=== PATIENT | female | born 1990 | race Caucasian/White ===

== ENCOUNTER 2016-08-21 05:26 | Emergency (ER) | payer BC ==
--- NOTE | 2016-08-21 05:40 | EDM.PDOC ---
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 Patient is a one para zero now at 7 weeks gestation who started some vaginal bleeding around one or 2:00 this morning this became worse she started passing clots possibly some tissue and developing cramps about an hour prior to arrival. The patient has not had any fevers or chills. She denies past medical history other than meningitis when she was a-year-old. The patient brought in some pictures on her phone, some clots 2-3 times the size of a quarter one of which may have had some tissue in it. Patient was seen by an video game programmer last week had an ultrasound done that showed an intrauterine . She is taking vitamins, no other medications. Allergies: None. Social history the patient smokes and drinks rarely denies illicit drug use. - Related Data Allergies/ADRs: Allergies Allergy/AdvReac Type Severity Reaction Status Date / Time No Known Allergies Allergy Verified 08/21/16 05:36 Home Meds: Home Meds Vits #90/Iron Fum/FA [ Formula] 1 tab PO DAILY 08/21/16 [ History] ED ROS GENERAL - Review of Systems Review Of Systems: See Below Constitutional: Reports: no symptoms Respiratory: Reports: No Symptoms Cardiovascular: Reports: No symptoms GI/Abdominal: Reports: No symptoms : Denies: discharge, dysuria, flank pain, frequency ED EXAM, GI/ABD - Physical Exam Exam: See Below Exam Limited By: No limitations General Appearance: alert, no apparent distress Head: atraumatic, normocephalic Neck: normal inspection, supple, non-tender, full range of motion. No: lymphadenopathy (L), lymphadenopathy (R), thyromegaly Respiratory/Chest: no respiratory distress, lungs clear, normal breath sounds Cardiovascular: regular rate, rhythm, no edema, no murmur GI/Abdominal: normal bowel sounds, soft, other (She has some suprapubic discomfort with palpation no rebound or guarding noted.) (Female) Exam: Normal external exam, Other (Patient had small clots coming from the cervical os blood no obvious tissue). No: Adnexal tenderness, Cervix motion tenderness Back Exam: normal inspection. No: CVA tenderness (L), CVA tenderness (R) Course - Vital Signs Last Recorded V/S: Last Vital Signs Temp 36.2 C 08/21/16 05:33 Pulse 81 08/21/16 05:33 Resp 18 08/21/16 05:33 BP 139/80 08/21/16 05:33 Pulse Ox 99 08/21/16 05:33 - Orders/Labs/Meds Orders: Active Orders 24 hr Category Date Time Status PATIENT RETYPE [BBK] Stat Lab 08/21/16 06:10 Results TYPE AND SCREEN [BBK] Stat Lab 08/21/16 06:10 Results Labs: Laboratory Tests 08/21/16 08/21/16 08/21/16 Range/Units 06:10 06:10 06:10 WBC 8.33 (3.98-10.04) K/mm3 RBC 4.46 (3.98-5.22) M/mm3 Hgb 13.8 (11.2-15.7) gm/L Hct 41.2 (34.1-44.9) % MCV 92.4 (79.4-94.8) fl MCH 30.9 (25.6-32.2) pg MCHC 33.5 (32.2-35.5) g/dl RDW Std Deviation 41.9 (36.4-46.3) fL Plt Count 252 (182-369) K/mm3 MPV 10.2 (9.4-12.3) fl Neutrophils % (Manual) 67 H (40-60) % Band Neutrophils % 0 (0-10) % Lymphocytes % (Manual) 30 (20-40) % Atypical Lymphs % 0 % Monocytes % (Manual) 0 L (2-10) % Eosinophils % (Manual) 3 (0.7-5.8) % Basophils % (Manual) 0 L (0.1-1.2) Platelet Estimate Adequate RBC Morph Comment Normal HCG, Quant 5213.0 mIU/mL Urine Color (Yellow) Urine Appearance (Clear) Urine pH (5.0-8.0) Ur Specific [place] (1.005-1.030) Urine Protein (Negative) Urine Glucose (UA) (Negative) Urine Ketones (Negative) Urine Occult Blood (Negative) Urine Nitrite (Negative) Urine Bilirubin (Negative) Urine Urobilinogen (0.2-1.0) Ur Leukocyte Esterase (Negative) Urine RBC (0-5) /hpf Urine WBC (0-5) /hpf Ur Squamous Epith Cells (0-5) /hpf Urine Bacteria (FEW) /hpf Urine Mucus (FEW) /hpf Blood Type A POSITIVE Gel Antibody Screen Negative 08/21/16 Range/Units 06:25 WBC (3.98-10.04) K/mm3 RBC (3.98-5.22) M/mm3 Hgb (11.2-15.7) gm/L Hct (34.1-44.9) % MCV (79.4-94.8) fl MCH (25.6-32.2) pg MCHC (32.2-35.5) g/dl RDW Std Deviation (36.4-46.3) fL Plt Count (182-369) K/mm3 MPV (9.4-12.3) fl Neutrophils % (Manual) (40-60) % Band Neutrophils % (0-10) % Lymphocytes % (Manual) (20-40) % Atypical Lymphs % % Monocytes % (Manual) (2-10) % Eosinophils % (Manual) (0.7-5.8) % Basophils % (Manual) (0.1-1.2) Platelet Estimate RBC Morph Comment HCG, Quant mIU/mL Urine Color Yellow (Yellow) Urine Appearance Clear (Clear) Urine pH 6.5 (5.0-8.0) Ur Specific [place] 1.015 (1.005-1.030) Urine Protein Negative (Negative) Urine Glucose (UA) Negative (Negative) Urine Ketones Negative (Negative) Urine Occult Blood 2+ H (Negative) Urine Nitrite Negative (Negative) Urine Bilirubin Negative (Negative) Urine Urobilinogen 0.2 (0.2-1.0) Ur Leukocyte Esterase Negative (Negative) Urine RBC 0-5 (0-5) /hpf Urine WBC 0-5 (0-5) /hpf Ur Squamous Epith Cells 0-5 (0-5) /hpf Urine Bacteria Not seen (FEW) /hpf Urine Mucus Not seen (FEW) /hpf Blood Type Gel Antibody Screen - Re-Assessments/Exams Free Text/Narrative Re-Assessment/Exam: 08/21/16 07:33 Labs stable awaiting quantitative hCG at this point is change of shift further care and disposition per Dr. Crenshaw. Departure - Departure Disposition: Home, Self-Care 01 Clinical Impression: Incomplete Instructions: Incomplete Miscarriage Referrals: Marion Ly MD [Primary Care Provider] - Forms: ED Department Discharge Additional Instructions: Evaluation in the emergency room today in regards to heavy vaginal bleeding in the first semester . By THE is failing which we call in and complete miscarriage. HCG level came back at 5213. Blood type is A+. Therefore you are to anticipate heavy vaginal flow for the rest of today and then it should start to ease up tomorrow on the next day but it. Heavier than normal. Need to return to medical care if you start to grow heavy enough to soak a pad completely for 2 consecutive hours. It is okay now to take Motrin or Aleve to alleviate abdominal cramping pain. Followup with Dr. Chan is required early next week probably Wednesday. Please will make an appointment with her today. I was able to speak with her this morning and she will follow you along early next week and then a later date to make sure that the hormonal is returned to zero. If any other problems occur either return to the emergency room or call Dr. Ly. <Lv Crenshaw - Last Filed: 08/21/16 07:52> Departure - Departure Time of Disposition: 07:43 Condition: fair
[2016-08-21 08:20] VITALS: BP 105/61
== END 2016-08-21 08:20 | disposition home or self-care (01) ==
LOC: JD.ED 05:26
DX: O03.4 Incomplete spontaneous abortion without complication (principal); Z79.899 Other long term (current) drug therapy
CPT/HCPCS: 36415; 81001; 84702; 85025; 86850; 86900; 86901; 99284; P9612; 51701; 99283

== ENCOUNTER 2017-11-16 07:36 | Inpatient (IN) | payer BC ==
[2017-11-16] MEDS ORDERED: Nalbuphine 20 MG/ML 1 ML Syringe IVPUSH PRN (08:10)
[2017-11-16] MEDS ORDERED: Sodium Chloride 0.9% 10 ML Syringe FLUSH PRN (08:10)
[2017-11-16] MEDS ORDERED: Lactated Ringers 1,000 ML IV SCH (08:15)
[2017-11-16] MEDS ORDERED: Oxytocin/Lactated Ringers 10 UNIT/1,000 ML BAG IV SCH ×2 (08:15)
[2017-11-16] MEDS ORDERED: Ondansetron 4 MG/2 ML SDV IVPUSH PRN (08:38)
[2017-11-16] MEDS ORDERED: diphenhydrAMINE 50 MG/ML SDV IVPUSH PRN (08:38)
[2017-11-16] MEDS ORDERED: fentaNYL 100 MCG/2 ML SDV EPIDUR PRN (08:38)
[2017-11-16] MEDS ORDERED: ePHEDrine 50 MG/ML SDV IVPUSH PRN (08:38)
[2017-11-16] MEDS ORDERED: Bupivacaine/fentaNYL/NS 100 ML Bag EPIDUR SCH (08:45)
--- NOTE | 2017-11-16 10:12 | PCM.LDHP ---
L&D History of Present Illness - General Date of Service: 11/16/17 Admit Problem/Dx: Patient Status Order with Admit Dx/Problem 11/16/17 08:10 Patient Status [ADT] Routine Admission Diagnosis/Problem Admission Diagnosis/Problem 11/16/17 10:03 41-2/7 week intrauterine , active labor, advanced cervical dilation of 8 cm. Source of Information: Patient History Limitations: Reports: No Limitations - History of Present Illness Introduction:: Hiral is 27-year-old 3 para 0020 white female who comes in in labor and delivery with advanced cervical dilation, contractions every 3 minutes which are intense and regular. Her BISI is 11/07/2017. Artificial rupture membranes was performed with resultant clear amniotic fluid. She then advances to complete cervical dilation relatively quickly. She is having reassuring heart tones. history 3 para 0020. Patient's past obstetric history includes miscarriage 2 in July 2016 in November 2016. Her BISI is determined by last menstrual period of 01/31/2017 which is certain and definite. Menarche age 11 cycles every 28 days duration 5-7 days. No control been using a time conception. Her course has been relatively unremarkable. Her first visit was on 04/26/2017 at 12-1/7 weeks gestational age. She is seen on a regular basis. Her weight increased from approximate 170 pounds up to 186 pounds for a 16 pound weight gain. Her vital signs were stable through the course and her fundal height growth was appropriate. She had an abnormal three-hour week glucose tolerance test. She was well controlled with diet however. She declined genetic testing. Her [place] depression screen score was 4 and scale 30 on June 07, 2017. Her group B strep screen was negative. Patient last breast-feed. Laboratory testing. She shows blood to be a positive with a negative antibody screen. First hemoglobin was 13.6 g/dL and platelets are 202,000. She is rubella immune. RPR is nonreactive. Patient Gardnerella on culture with first visit and was treated. Her Chlamydia and gonorrhea assays were both negative. Hepatitis B surface antigen and HIV assays were both negative. Second trimester labs showed hemoglobin 11.2 g or deciliter and platelets are 243,000. She had a one-hour GTT of 199. Her 3 glucose tolerance test was 83 at fasting, 192 at one-hour, 190 and 2 hour and 90 at 3 hour. Her group B strep screen was negative. Patient was started on a diet and had consultation with hospice educator. She did blood sugars which were consistently within normal limits for the most of the remainder of the . Allergies none Medications: 1. vitamins daily Past medical history: Miscarriages 2 Past surgical history: Unremarkable Family history mother and father are alive and well. Father does have hypertension, elevated cholesterol and diabetes type 2. Niece with cystic fibrosis history, . Paternal grandmother secondary diabetes and Alzheimer's. Maternal grandfather secondary uncertain cause of . Paternal grandmother and grandfather both uncertain cause of . No anesthesia, bleeding, blood clotting problems noted in the family. Social history patient is , lives in [facility]. She was does not use any significant loss of alcohol, drugs but has smoked during the course of . Her is Lv. Review of systems: In general patient is having contractions which are somewhat intense. Skin: Negative Cardiovascular: No chest pain or exercise intolerance Respiratory: No shortness of breath or infectious symptoms Breasts: Increase in size secondary to otherwise unremarkable. Patient plans to breast-feed. GI: Negative : Increased fundal height consistent with dates. Musculoskeletal: Occasional edema in lower start was otherwise unremarkable Neurological: Unremarkable Physical exam: In general patient is well-developed, well-nourished, pleasant phenyl stated age in mild distress secondary to contractions. On last evaluation clinic her blood pressure 122/72 and 142/82. Weight was 186 and increased from 170 from at first visit. heart rate is 140 and fundal height was 39. Her pregravid weight was 169.8 height is 5 feet 8 and pregravid body mass index is 25.7. Skin is warm dry without lesions. HEENT, neck and back within normal limits Lungs are clear with good breath sounds in all lung felipe. Cardiovascular exam shows regular rate and rhythm without murmurs. Breast exam is deferred having been done at first visit and found to be normal is not repeated at this time. Abdomen shows Fundal height is at 39 cm. Using vertex presentation by Jean Paul. Cervix on last evaluation clinic was 4 centers, 90% effaced, -2 station, very soft, mid position. Extremities show no significant edema. Neurological exam within normal. - Related Data Allergies/Adverse Reactions: Allergies Allergy/AdvReac Type Severity Reaction Status Date / Time No Known Allergies Allergy Verified 08/21/16 05:36 Home Medications: Home Meds Vit 90/Iron Fum/Folic [ Formula] 1 tab PO DAILY 08/21/16 [ History] Past Medical History - Past Health History Medical/Surgical History: Denies Medical/Surgical History Social & Family History - Family History Family Medical History: Noncontributory H&P Review of Systems - Review of Systems: Review Of Systems: See Below L&D Exam - Exam Exam: See Below - Vital Signs Weight: 84.368 kg - Patient Data Lab Results Last 24 hrs: Laboratory Results - last 24 hr 11/16/17 Range/Units 08:25 WBC 18.84 H (3.98-10.04) K/mm3 RBC 3.99 (3.98-5.22) M/mm3 Hgb 12.5 (11.2-15.7) gm/L Hct 36.9 (34.1-44.9) % MCV 92.5 (79.4-94.8) fl MCH 31.3 (25.6-32.2) pg MCHC 33.9 (32.2-35.5) g/dl RDW Std Deviation 47.5 H (36.4-46.3) fL Plt Count 201 (182-369) K/mm3 MPV 11.3 (9.4-12.3) fl Neut % (Auto) 80.9 H (34.0-71.1) % Lymph % (Auto) 14.0 L (19.3-51.7) % Gibson % (Auto) 4.4 L (4.7-12.5) % Eos % (Auto) 0.2 L (0.7-5.8) Baso % (Auto) 0.2 (0.1-1.2) % Neut # (Auto) 15.26 H (1.56-6.13) K/mm3 Lymph # (Auto) 2.64 (1.18-3.74) K/mm3 Gibson # (Auto) 0.82 H (0.24-0.36) K/mm3 Eos # (Auto) 0.04 (0.04-0.36) K/mm3 Baso # (Auto) 0.03 (0.01-0.08) K/mm3 Result Diagrams: 11/16/17 08:25 Problem List Initiated/Reviewed/Updated: Yes Orders Last 24hrs: Active Orders 24 hr Category Date Time Status Patient Status [ADT] Routine ADT 11/16/17 08:10 Active Activity as Tolerated [RC] PFP Care 11/16/17 08:10 Active Communication Order [RC] ASDIRECTED Care 11/16/17 08:10 Active Heart Tones [RC] ASDIRECTED Care 11/16/17 08:10 Active Notify Provider [RC] ASDIRECTED Care 11/16/17 08:38 Active Notify Provider [RC] PFP Care 11/16/17 08:10 Active Notify Provider [RC] PRN Care 11/16/17 08:10 Active Peripheral IV Care [RC] . DIRECTED Care 11/16/17 08:10 Active Pump Management, Intrathecal [RC] ASDIRECTED Care 11/16/17 08:10 Active Urinary Catheter Assessment [RC] ASDIRECTED Care 11/16/17 08:10 Active Vital Signs [RC] PER UNIT ROUTINE Care 11/16/17 08:10 Active Regular Diet [DIET] Diet 11/16/17 Breakfast Active RAPID PLASMA REAGIN,RPR [CHEM] Routine Lab 11/16/17 08:25 Received Bupivacaine/fentaNYL/NS [fentaNYL/Bupivacaine/NS 2 MCG- Med 11/16/17 08:45 Active 0.125% 100 ML] 100 ml EPIDUR ASDIRECTED Lactated Ringers [Ringers, Lactated] 1,000 ml Med 11/16/17 08:15 Active IV ASDIRECTED Nalbuphine [Nubain] Med 11/16/17 08:10 Active 10 mg IVPUSH Q2H PRN Ondansetron [Zofran] Med 11/16/17 08:38 Active 4 mg IVPUSH ONETIME PRN Oxytocin/Lactated Ringers [Pitocin in LR 10 Units/1,000 Med 11/16/17 08:15 Active ML] 10 unit in 1,000 ml IV .CONTINUOUS Oxytocin/Lactated Ringers [Pitocin in LR 10 Units/1,000 Med 11/16/17 08:15 Active ML] 10 unit in 1,000 ml IV TITRATE Sodium Chloride 0.9% [Saline Flush] Med 11/16/17 08:10 Active 10 ml FLUSH ASDIRECTED PRN diphenhydrAMINE [Benadryl] Med 11/16/17 08:38 Active 25 mg IVPUSH Q6H PRN ePHEDrine [ePHEDrine Sulfate] Med 11/16/17 08:38 Active 5 mg IVPUSH ASDIRECTED PRN fentaNYL [Sublimaze] Med 11/16/17 08:38 Active 100 mcg EPIDUR ONETIME PRN Electronic Heart Tones Ext w TOCO [WOMSER] Oth 11/16/17 08:10 Ordered Routine Electronic Heart Tones Internal [WOMSER] Per Unit Ot 11/16/17 08:10 Ordered Routine Peripheral IV Insertion Adult [OM.PC] Routine Ot 11/16/17 08:10 Ordered Resuscitation Status Routine Resus Stat 11/16/17 08:10 Ordered Medication Orders Diphenhydramine HCl (Benadryl) 25 mg IVPUSH Q6H PRN PRN Reason: Pruritis Ephedrine Sulfate (Ephedrine Sulfate) 5 mg IVPUSH ASDIRECTED PRN PRN Reason: Hypotension Fentanyl (Sublimaze) 100 mcg EPIDUR ONETIME PRN PRN Reason: Pain Fentanyl/Bupivacaine HCl (Fentanyl/Bupivacaine/Ns 2 Mcg-0.125% 100 Ml) 100 ml EPIDUR ASDIRECTED AMY Lactated Ringer's (Ringers, Lactated) 1,000 mls @ 100 mls/hr IV ASDIRECTED AMY Last Admin: 11/16/17 08:30 Dose: 999 mls/hr Oxytocin/Lactated Ringer's (Pitocin In Lr 10 Units/1,000 Ml) 10 unit in 1,000 mls @ 12 mls/hr IV TITRATE AMY; Protocol Oxytocin/Lactated Ringer's (Pitocin In Lr 10 Units/1,000 Ml) 10 unit in 1,000 mls @ 500 mls/hr IV .CONTINUOUS AMY Nalbuphine HCl (Nubain) 10 mg IVPUSH Q2H PRN PRN Reason: Pain (moderate 4-6) Ondansetron HCl (Zofran) 4 mg IVPUSH ONETIME PRN PRN Reason: Nausea/Vomiting Sodium Chloride (Saline Flush) 10 ml FLUSH ASDIRECTED PRN PRN Reason: Keep Vein Open Assessment/Plan Comment:: 1. 41-2/7 week intrauterine printed, active labor with advanced cervical dilation 2. She declines epidural analgesia at this time 3. Patient plans to breast-feed 4. Group B strep screen negative 5. Rubella titer shows immunity Plan: 1. Anticipate normal spontaneous vaginal delivery 2. Natural childbirth 3. Support breast-feeding decision 4. RPR
[2017-11-16] MEDS ORDERED: Lidocaine 1% 50 ML MDV ONE (10:47)
--- NOTE | 2017-11-16 11:19 | PCM.SN ---
- Free Text/Narrative Note: Delivery note: Cherelle is a 27-year-old 3 now para 10-1 white female who was admitted in active labor this morning. She is 41-2/7 weeks gestational age upon admission. She progressed to complete cervical dilation and pushed for approximately 45 minutes. She delivered a viable, diamond, male with Apgars of 8 and 9, weight of 3360 g (7 lbs. 7 oz. in a right occiput anterior position at 1055 hrs. on 11/16/2017. He was placed on mom's abdomen. Cord was eventually clamped and cut after stopped pulsating and was was noted to have 3 vessels. Pitocin was started after delivery IV to facilitate increase in tone and decreased likelihood of bleeding. Cord blood was obtained. The placenta delivered in a Jones fashion at 1101 hrs. A small second-degree perineal laceration was repaired with 3-0 Monocryl suture in a routine fashion. Lidocaine 1%10 mL was used to provide anesthesia. Estimated blood loss was 100 mL. Patient plans to breast-feed. Condition: Good.
[2017-11-16] MEDS ORDERED: Acetaminophen 325 MG Tab PO PRN (12:05)
[2017-11-16] MEDS ORDERED: Docusate Sodium 100 MG Cap PO PRN (12:05)
[2017-11-16] MEDS ORDERED: Ibuprofen 600 MG Tab PO PRN (12:05)
[2017-11-16] MEDS ORDERED: Lanolin 100% Cream 7 GM Tube TOP PRN (12:05)
[2017-11-16] MEDS ORDERED: Witch Hazel Medicated Pads 100/Jar TOP PRN (12:05)
[2017-11-16] MEDS ORDERED: Benzocaine/Menthol 20%-0.5% Spray 56 GM Canister TOP PRN (12:05)
[2017-11-16] MEDS: Prenatal Multivitamin with Calcium/Folic Acid/Iron Tab PO SCH (15:58)
[2017-11-16] MEDS ORDERED: Pneumococcal Polyvalent-23 Vaccine 0.5 ML SDV IM ONE (16:22)
[2017-11-16] MEDS ORDERED: Lidocaine 1% 10 ML MDV INJECT ONE (16:23)
--- NOTE | 2017-11-17 06:59 | PCM.SN ---
- Free Text/Narrative Note: note: Patient is doing well in the period. Minimal lochia, voiding well, ambulated without problems. Nursing without concerns. Patient is afebrile, vital signs are stable Abdomen is flat, soft, uterus is below the umbilicus and is firm and nontender. Legs are nontender. Hemoglobin is 11.1, platelets are 195,000 Assessment: recovery going well. Plan: Routine care. Patient be discharged home within the next 24- 48 hours.
[2017-11-17] MEDS: Prenatal Multivitamin with Calcium/Folic Acid/Iron Tab PO SCH (10:06)
--- NOTE | 2017-11-17 18:44 | PCM.DCSUM1 ---
Discharge Summary - Hospital Course Free Text/Narrative:: Cherelle is a 27-year-old 3 now para 10-1 white female who was admitted in active labor this morning. She is 41-2/7 weeks gestational age upon admission. She progressed to complete cervical dilation and pushed for approximately 45 minutes. She delivered a viable, diamond, male infant with Apgars of 8 and 9, weight of 3360 g (7 lbs. 7 oz. in a right occiput anterior position at 1055 hrs. on 11/16/2017. He was placed on mom's abdomen. Cord was eventually clamped and cut after stopped pulsating and was was noted to have 3 vessels. Pitocin was started after delivery IV to facilitate increase in tone and decreased likelihood of bleeding. Cord blood was obtained. The placenta delivered in a Jones fashion at 1101 hrs. A small second-degree perineal laceration was repaired with 3-0 Monocryl suture in a routine fashion. Lidocaine 1%10 mL was used to provide anesthesia. Estimated blood loss was 100 mL. Patient plans to breast-feed. patient is doing well. She is nursing without too many problems. She is ambulating well. Vital signs are stable. Patient is desiring discharge home. Condition: Good. Diagnosis: Stroke: No - Discharge Data Discharge Date: 11/17/17 Discharge Disposition: Home, Self-Care 01 Condition: Good - Patient Instructions Diet: Regular Diet as Tolerated Activity: As Tolerated (No intercourse tampons until bleeding resolves) Driving: May Drive Today Showering/Bathing: May Shower (May take a bath) Notify Provider of: Fever, Increased Pain, Swelling and Redness, Nausea and/or Vomiting - Discharge Plan Home Medications: Home Meds Vit 90/Iron Fum/Folic [ Formula] 1 tab PO DAILY 08/21/16 [ History] Acetaminophen [Tylenol] 650 mg PO Q4H PRN tablet 11/17/17 [Rx] Ibuprofen [Motrin] 600 mg PO Q4H PRN tablet 11/17/17 [Rx] Patient Handouts: Steps to Quit Smoking Referrals: Shailesh Rudd MD [Primary Care Provider] - (Return to clinicDr. Rudd2 weeks) - Discharge Summary/Plan Comment DC Time >30 min.: No Discharge Summary/Plan Comment: Discharge instructions: 1. Discharge home 2. Diet, activity and follow-up discussed with patient. Recommend nursing diet with increased calories and calcium. 3. Precautions given concern increased pain, bleeding, temperature, signs/ symptoms of DVT/PE. 4. Medications per home medication was printed, discussed with and given to the patient. 5. Return to clinic-Dr. Rudd[facility] in 2 weeks. Diagnosis: Term -delivered Condition: Good - Patient Data Vitals - Most Recent: Last Vital Signs Temp 36.4 C 11/17/17 14:39 Pulse 83 11/17/17 14:39 Resp 16 11/17/17 14:39 BP 116/70 11/17/17 14:39 Pulse Ox 94 L 11/17/17 14:39 Weight - Most Recent: 84.368 kg Lab Results - Last 24 hrs: Laboratory Results - last 24 hr 11/17/17 Range/Units 06:00 WBC 15.13 H (3.98-10.04) K/mm3 RBC 3.57 L (3.98-5.22) M/mm3 Hgb 11.1 L (11.2-15.7) gm/L Hct 33.5 L (34.1-44.9) % MCV 93.8 (79.4-94.8) fl MCH 31.1 (25.6-32.2) pg MCHC 33.1 (32.2-35.5) g/dl RDW Std Deviation 48.0 H (36.4-46.3) fL Plt Count 195 (182-369) K/mm3 MPV 11.1 (9.4-12.3) fl Med Orders - Current: Current Medications Acetaminophen (Tylenol) 650 mg PO Q4H PRN PRN Reason: mild pain or fever Benzocaine/Menthol (Dermoplast Pain Relief [place]) 0 gm TOP ASDIRECTED PRN PRN Reason: Perineal Comfort Measure Last Admin: 11/16/17 14:22 Dose: 1 can Docusate Sodium (Colace) 100 mg PO BID PRN PRN Reason: Constipation Emollient Ointment (Lansinoh Hpa) 0 gm TOP ASDIRECTED PRN PRN Reason: Sore Nipples Ibuprofen (Motrin) 600 mg PO Q4H PRN PRN Reason: Mild pain or fever Prenat Multivit/[place]/Iron/Folic Ac ( Plus Iron) 1 each PO DAILY [facility] Last Admin: 11/17/17 10:06 Dose: 1 each Witch Cris (Tucks) 1 pad TOP ASDIRECTED PRN PRN Reason: Hemorrhoid pain Last Admin: 11/16/17 14:22 Dose: 1 container Discontinued Medications Diphenhydramine HCl (Benadryl) 25 mg IVPUSH Q6H PRN PRN Reason: Pruritis Ephedrine Sulfate (Ephedrine Sulfate) 5 mg IVPUSH ASDIRECTED PRN PRN Reason: Hypotension Fentanyl (Sublimaze) 100 mcg EPIDUR ONETIME PRN PRN Reason: Pain Fentanyl/Bupivacaine HCl (Fentanyl/Bupivacaine/Ns 2 Mcg-0.125% 100 Ml) 100 ml EPIDUR ASDIRECTED AMY Lactated Ringer's (Ringers, Lactated) 1,000 mls @ 100 mls/hr IV ASDIRECTED AMY Last Admin: 11/16/17 08:30 Dose: 999 mls/hr Oxytocin/Lactated Ringer's (Pitocin In Lr 10 Units/1,000 Ml) 10 unit in 1,000 mls @ 12 mls/hr IV TITRATE AMY; Protocol Oxytocin/Lactated Ringer's (Pitocin In Lr 10 Units/1,000 Ml) 10 unit in 1,000 mls @ 500 mls/hr IV .CONTINUOUS AMY Last Admin: 11/16/17 10:55 Dose: 500 mls/hr Lidocaine HCl (Xylocaine 1%) Confirm Administered Dose 50 ml .ROUTE .STK-MED ONE Stop: 11/16/17 10:48 Last Admin: 11/16/17 11:10 Dose: 50 ml Lidocaine HCl (Xylocaine 1%) 10 ml INJECT ONETIME ONE Stop: 11/16/17 16:24 Last Admin: 11/16/17 16:44 Dose: Not Given Nalbuphine HCl (Nubain) 10 mg IVPUSH Q2H PRN PRN Reason: Pain (moderate 4-6) Ondansetron HCl (Zofran) 4 mg IVPUSH ONETIME PRN PRN Reason: Nausea/Vomiting Pneumococcal Polyvalent Vaccine (Pneumovax 23) 0.5 ml IM .ONCE ONE Stop: 11/16/17 16:23 Last Admin: 11/17/17 10:07 Dose: 0.5 ml Sodium Chloride (Saline Flush) 10 ml FLUSH ASDIRECTED PRN PRN Reason: Keep Vein Open
[2017-11-17 20:27] VITALS: BP 118/68
== END 2017-11-17 22:30 | disposition home or self-care (01) | DRG 560 ==
LOC: JD.OBCHECK 07:36 → JD.OB 07:40 → JD.OBCHECK 08:10 → OBSVTOIN 10:55 → JD.MS 10:56 → JD.OB 15:42
PROVIDERS: ADMIT Obstetrics & Gynecology; ATTEND Obstetrics & Gynecology
PROC: 10E0XZZ Delivery of Products of Conception, External Approach (ICD-10-PCS; principal; 2017-11-16)
PROC: 0KQM0ZZ Repair Perineum Muscle, Open Approach (ICD-10-PCS; 2017-11-16)
PROC: 10907ZC Drainage of Amniotic Fluid, Therapeutic from Products of Conception, Via Natural or Artificial Opening (ICD-10-PCS; 2017-11-16)
DX: O70.1 Second degree perineal laceration during delivery (principal); Z3A.41 41 weeks gestation of pregnancy; Z37.0 Single live birth
CPT/HCPCS: 36415; 59025; 59300; 59409; 85025; 85027; 86592; 90732; A9270-GY; G0009; J2590; J7120

== ENCOUNTER 2019-09-21 10:41 | Inpatient (IN) | payer BC ==
[2019-09-21] MEDS ORDERED: Ondansetron 4 MG/2 ML SDV IVPUSH PRN (11:16)
[2019-09-21] MEDS ORDERED: Nalbuphine 10 MG/ML Syringe IVPUSH PRN (11:16)
[2019-09-21] MEDS ORDERED: Sodium Chloride 0.9% 10 ML Syringe FLUSH PRN (11:16)
[2019-09-21] MEDS: Lactated Ringers 1,000 ML IV SCH ×2 (11:27→17:30)
[2019-09-21] MEDS ORDERED: Oxytocin/Lactated Ringers 10 UNIT/1,000 ML BAG IV SCH ×2 (11:30)
--- NOTE | 2019-09-21 12:27 | PCM.LDHP ---
L&D History of Present Illness - General Date of Service: 09/21/19 Admit Problem/Dx: Patient Status Order with Admit Dx/Problem 09/21/19 11:16 Patient Status [ADT] Routine Admission Diagnosis/Problem Admission Diagnosis/Problem 09/21/19 12:11 Cherelle is a 29-year-old 4 para 102 1 white female who presently is 5/7 weeks gestational age with an BISI of 09/23/2019 who is and delivery in early labor with advanced cervical dilation of 7 cm, 90% effacement, very soft, mid position and +1 station. Heart tones are reassuring. Source of Information: Patient History Limitations: Reports: No Limitations - History of Present Illness Introduction:: Cherelle is a 29-year-old 4 para 102 1 white female who presently is 5/7 weeks gestational age with an BISI of 09/23/2019 who is and delivery in early labor with advanced cervical dilation of 7 cm, 90% effacement, very soft, mid position and +1 station. Heart tones are reassuring.She was seen in clinic this a.m. and found to have advanced from 5 cm dilation 2 days ago to 7 cm dilation today. She is having a minimal contractions that are mild. Because she is a multiparous patient who lives 30 minutes away from the hospital the decision was made to send her to labor and delivery and proceed with AROM augmentation of labor. She is comfortable with this and is very glad concerning this decision. 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 Patient had menarche at age 11. Cycles every 28 days. Not using any control time conception. Her last menstrual period was 12/17/2018. This LMP was relatively certain. She was however nursing up to 3 weeks before getting . Her past obstetric history includes the followin. Miscarriage, first trimester7 weeks gestation on 08/20/2016. 2. Miscarriage in the first trimester5 weeks' gestation on 11/21/2016 3. Male infant born 11/16/2017 at 41-2/7 weeks gestational age after 7 hours of labor7 lbs. 7 oz. born via with no analgesia. Delivered in [facility]. Child's name is Edin Wei. course: Patient was seen for her first visit on 03/06/2019 at 11-2/7 weeks gestational age. BISI is dated by a certain last menstrual 2018. She had regular visits during the course of Precis. She made good fundal height growth. Her weight gain was from 154.8 pounds to 180 pounds for approximately 25 pound increase. Fundal height growth has been appropriate. She is group B strep negative. She had an abnormal one-hour GTT of 137. Three- hour GTT was normal with fasting blood sugar 83, 1 hour glucose 135, 2 hour glucose 116 and three-hour glucose 105. Her EPDS score on 05/22/2019 was 6/30. She had an abnormal Pap smear which showed low-grade squamous intraepithelial lesion with cold test HPV negative. She is advised to have a repeat Pap smear and colposcopy at 6 weeks . Colposcopy 04/19/2019 showed no significant abnormalities. Patient smokes approximately half pack per day which buried up to 1 pack per day late in the . Has a history of gestational diabetes with previous . Patient had her flu shot on 03/06/2019. Sure she had her T dap on 07/11/2019. She is rubella immune. She had a pneumococcal immunization on 11/17/2017. Laboratory testing and shows blood to be 8-positive with negative antibody screen. Her first hemoglobin was 12.6 g/dL and platelets are 281,000. She is rubella immune and RPR was nonreactive. Hep test B surface antigen was negative and HIV assay was also negative. Gonorrhea and chlamydia tests were negative. TSH on 06/27/2019 was normal at 0.552 mU/mL. Second trimester hemoglobin was 11.3 g/dL. Patient is advised to get on ferrous sulfate at that time. Platelets are 244,000. Her RPR on 06/27/2019 was nonreactive. Strep screen was negativ Allergies: None Medications: vitamins Past medical history: 1. 11/16/2017 2. Spontaneous miscarriages 2first [id number] Past surgical history: Unremarkable. Family history: Mother alive and well. Father alive, well but with hypertension and elevated cholesterol and type 2 diabetes. Patient has 3 siblings were alive and well. A niece had cystic fibrosis. Baby at 15 months of age. Maternal grandmother secondary to diabetes and Alzheimer's. Maternal grandfather secondary to uncertain cause. Paternal grandmother uncertain cause. Paternal grandfather uncertain cause. No anesthesia, bleeding, blood clotting problems noted in the family. Social history: Patient is . is Garth. She is a [id number] mom. She lives in [place], [place]. She smokes 1/2-1 pack cigarettes per day. She does not use any other significant drugs or alcohol. Review of systems: In general patient has no complaints. As reports some contractions but they're irregular and mild. Skin: Negative Lungs: No infectious symptoms or shortness of breath Cardiovascular: No chest pain or exercise intolerance Breasts: Changes associated with . GI: Negative : Body habitus changes associated . Baby has been active. Musculoskeletal: Negative Neurological: Negative In general the patient is well-developed, well-nourished, pleasant female of stated age in no acute distress. On evaluation in clinic patient's blood pressure was 144/68 on repeat 142/80. Her weight was 180 pounds with pre weight at 154.8 pounds. Prepregnancy body mass index is 22.8. Height is 5 feet 8 inches. heart rate was 136. Skin is warm dry without lesions. HEENT, neck and back within normal limits. Lungs are clear with good breath sounds in all lung felipe. Cardiovascular exam shows regular and rhythm without murmurs. Breast exam is deferred having been done at first visit found to be normal is not repeated at this time. Patient plans to breast-feed. Abdomen is gravid with a fundal height of 39+ centimeters. Baby is in a vertex presentation. Genital exam per digital shows cervix to be 7 cm, 90% effaced, very soft, mid position, +1 station. Extremities and neurological exam are grossly within normal limits. 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5 C 09/21/19 11:16 Pulse 89 09/21/19 11:16 Resp 16 09/21/19 11:16 BP 122/77 09/21/19 11:16 Pulse Ox 96 09/21/19 11:16 Weight: 81.193 kg - Patient Data Lab Results Last 24 hrs: Laboratory Results - last 24 hr 09/21/19 Range/Units 11:38 WBC 11.82 H (3.98-10.04) K/mm3 RBC 3.89 L (3.98-5.22) M/mm3 Hgb 12.0 (11.2-15.7) gm/dl Hct 37.0 (34.1-44.9) % MCV 95.1 H (79.4-94.8) fl MCH 30.8 (25.6-32.2) pg MCHC 32.4 (32.2-35.5) g/dl RDW Std Deviation 47.6 H (36.4-46.3) fL Plt Count 252 (182-369) K/mm3 MPV 11.1 (9.4-12.3) fl Neut % (Auto) 67.6 (34.0-71.1) % Lymph % (Auto) 25.9 (19.3-51.7) % [place] % (Auto) 5.2 (4.7-12.5) % Eos % (Auto) 0.9 (0.7-5.8) Baso % (Auto) 0.2 (0.1-1.2) % Neut # (Auto) 8.00 H (1.56-6.13) K/mm3 Lymph # (Auto) 3.06 (1.18-3.74) K/mm3 [place] # (Auto) 0.61 H (0.24-0.36) K/mm3 Eos # (Auto) 0.11 (0.04-0.36) K/mm3 Baso # (Auto) 0.02 (0.01-0.08) K/mm3 Result Diagrams: 09/21/19 11:38 Problem List Initiated/Reviewed/Updated: Yes Orders Last 24hrs: Active Orders 24 hr Category Date Time Status Patient Status [ADT] Routine ADT 09/21/19 11:16 Active Activity as Tolerated [RC] PFP Care 09/21/19 11:16 Active Communication Order [RC] ASDIRECTED Care 09/21/19 11:16 Active Heart Tones [RC] ASDIRECTED Care 09/21/19 11:17 Active Notify Provider [RC] PFP Care 09/21/19 11:16 Active Notify Provider [RC] PRN Care 09/21/19 11:16 Active Peripheral IV Care [RC] . DIRECTED Care 09/21/19 11:17 Active Pump Management, Intrathecal [RC] ASDIRECTED Care 09/21/19 11:17 Active Vital Signs [RC] PER UNIT ROUTINE Care 09/21/19 11:16 Active Regular Diet [DIET] Diet 09/21/19 Breakfast Active BLOOD BANK HOLD SPECIMEN [BBK] Stat Lab 09/21/19 11:16 Ordered RAPID PLASMA REAGIN,RPR [CHEM] Routine Lab 09/21/19 11:38 Received Lactated Ringers [Ringers, Lactated] 1,000 ml Med 09/21/19 11:30 Active IV ASDIRECTED Nalbuphine [Nubain] Med 09/21/19 11:16 Active 10 mg IVPUSH Q2H PRN Ondansetron [Zofran] Med 09/21/19 11:16 Active 4 mg IVPUSH Q4H PRN Oxytocin/Lactated Ringers [Pitocin in LR 10 Units/1,000 Med 09/21/19 11:30 Active ML] 10 unit in 1,000 ml IV .CONTINUOUS Oxytocin/Lactated Ringers [Pitocin in LR 10 Units/1,000 Med 09/21/19 11:30 Active ML] 10 unit in 1,000 ml IV TITRATE Sodium Chloride 0.9% [Saline Flush] Med 09/21/19 11:16 Active 10 ml FLUSH ASDIRECTED PRN Electronic Heart Tones Ext w TOCO [WOMSER] Oth 09/21/19 11:16 Ordered Routine Electronic Heart Tones Internal [WOMSER] Per Unit Oth 09/21/19 11:16 Ordered Routine Peripheral IV Insertion Adult [OM.PC] Routine Oth 09/21/19 11:16 Ordered Resuscitation Status Routine Resus Stat 09/21/19 11:16 Ordered Medication Orders Lactated Ringer's (Ringers, Lactated) 1,000 mls @ 100 mls/hr IV ASDIRECTED AMY Last Admin: 09/21/19 11:27 Dose: 100 mls/hr Oxytocin/Lactated Ringer's (Pitocin In Lr 10 Units/1,000 Ml) 10 unit in 1,000 mls @ 500 mls/hr IV .CONTINUOUS AMY Oxytocin/Lactated Ringer's (Pitocin In Lr 10 Units/1,000 Ml) 10 unit in 1,000 mls @ 12 mls/hr IV TITRATE AMY; Protocol Nalbuphine HCl (Nubain) 10 mg IVPUSH Q2H PRN PRN Reason: Pain Ondansetron HCl (Zofran) 4 mg IVPUSH Q4H PRN PRN Reason: Nausea/Vomiting Sodium Chloride (Saline Flush) 10 ml FLUSH ASDIRECTED PRN PRN Reason: Keep Vein Open Assessment/Plan Comment:: 1. Multiparous patient who lives 30 minutes and weighed from the hospital presently at 39-5/7 week intrauterine , in early labor with advanced cervical dilation of 7 cm. 2. Group B strep screen negative. 3. Risk factors include history of smoking, history of miscarriagefirst trimester 2 4. Patient plans to breast-feed. 5. Patient is open to analgesia in labor. 6. Patient is rubella immune, has had her T dap and her flu immunization during Plan: 1. Anticipate normal spontaneous vaginal delivery. 2. If patient does not progress will proceed with AROM 3. Routine labor care 4. Labor analgesia per patient desire 5. Support breast feeding plan 6. CBC and RPR upon admission per protocol
--- NOTE | 2019-09-21 17:32 | PCM.SN.2 ---
- Free Text/Narrative Note: Delivery note: Cherelle is a 29-year-old 4 para 102 1 white female who presently is 5/7 weeks gestational age with an BISI of 09/23/2019 who is and delivery in early labor with advanced cervical dilation of 7 cm, 90% effacement, very soft, mid position and +1 station. Heart tones are reassuring.She underwent artificial rupture membranes augmentation. Contractions picked up to every 3 minutes and intensified to moderate to strong. She became complete at approximately 1650 hrs. She began pushing and at 1706 hrs. she delivered a viable, diamond, with Apgars of 8 and 9, weight of 3250 g (7 lbs. 3 oz.), a length of 19.5 inches and Apgars of 8 and 9. The baby delivered in a right occiput anterior position over an intact perineum. The baby was placed on mom's abdomen and the umbilical cord was locked pulsate for approximately 2-3 minutes. Pitocin was increased to a rate of 500 mL per hour per protocol to facilitate increase in uterine tone and decreased likelihood of bleeding. Cord blood was obtained. The umbilical cord had 3 vessels. The placenta delivered at 1710 hrs. in a Small presentation, appearing intact and complete it was discarded per patient desire. Patient plans to breast-feed. Estimated blood loss was 100 mL. Condition: Good
[2019-09-21] MEDS ORDERED: Ibuprofen 600 MG Tab PO PRN (17:34)
[2019-09-21] MEDS ORDERED: Benzocaine/Menthol 20%-0.5% Spray 56 GM Canister TOP PRN (17:34)
[2019-09-21] MEDS ORDERED: Docusate Sodium 100 MG Cap PO PRN (17:34)
[2019-09-21] MEDS ORDERED: Witch Hazel Medicated Pads 40/Jar TOP PRN (17:34)
[2019-09-21] MEDS ORDERED: Acetaminophen 325 MG Tab PO PRN (17:34)
--- NOTE | 2019-09-22 08:44 | PCM.SN.2 ---
- Free Text/Narrative Note: note: day #1 Patient is doing well in the period. Minimal lochia, voiding well, ambulated without problems. Nursing without concerns. Patient is afebrile, vital signs are stable Abdomen is flat, soft, uterus is below the umbilicus and is firm and nontender. Legs are nontender. Assessment: recovery going well. Plan: Routine care. Patient be discharged home within the next 24-48 hours.
[2019-09-22] MEDS ORDERED: Prenatal Multivitamin with Calcium/Folic Acid/Iron Tab PO SCH (09:00)
--- NOTE | 2019-09-22 10:47 | PCM.DCSUM1 ---
Discharge Summary - Hospital Course Free Text/Narrative:: Gretta is a 27 year old 4 para 10-1 white female who was admitted at 39- 2/7 weeks gestational age with an BISI of 09/18/2019 for induction of labor. She is gestational diabetic that is diet controlled.Underwent artificial rupture membranes with resultant clear amniotic fluid at approximately 2000 hrs. on 09/12. Very slowly went into labor and was nelson every 2-5 minutes at approximately 0500 hrs. on 09/14/2019. Pitocin was started after that and patient was reevaluated cervical exam. Cervical exam showed minimal cervical change. With Pitocin augmentation patient rapidly went to complete cervical dilation by approximately 0910 hours. She pushed 1 contraction and at 0912 hrs. delivered a viable, diamond, male with Apgars of 8 and 9, a length of , a weight of grams, ( ), length of inches in a direct occiput anterior position. Baby was placed on mom's abdomen nose mouth were bulb suctioned. The baby was dried with a warm like it. Pitocin was increased to 500 mL/h to facilitate increase in uterine tone and decrease likelihood of bleeding. The umbilical cord was locked pulsate for prostate 2-3 minutes then was clamped 2 and cut by the baby's father Lv. The cord had 3 vessels. Cord blood was obtained. The placenta delivered at 0916 hrs. in a Small presentation, appeared intact and complete was discarded per patient desire. It had a marginal cord insertion. Estimated blood loss was 100 mL. Patient and encouragement no vaginal lacerations require any suturing. She plans to breast-feed. patient is doing well. She is ambulating well well, has minimal lochia, is nursing without problems and voiding without concerns. She is desiring discharge home. Condition: Good. Diagnosis: Stroke: No - Discharge Data Discharge Date: 09/22/19 Discharge Disposition: Home, Self-Care 01 Condition: Good - Referral to Home Health Primary Care Physician: Shailesh Rudd MD - Patient Instructions Diet: Regular Diet as Tolerated (Nursing diet as recommended) Activity: As Tolerated (No intercourse or tampons until bleeding resolves) Driving: May Drive Today Showering/Bathing: May Shower (May take a bath) Notify Provider of: Fever, Increased Pain, Swelling and Redness, Nausea and/or Vomiting - Discharge Plan Home Medications: Home Meds Vit 90/Iron Fum/Folic [ Formula] 1 tab PO DAILY 08/21/16 [ History] Patient Handouts: Steps to Quit Smoking - Discharge Summary/Plan Comment DC Time >30 min.: No Discharge Summary/Plan Comment: Discharge instructions: 1. Discharge home 2. Diet, activity and follow-up discussed with patient. Recommend nursing diet with increased calories and calcium. 3. Precautions given concern increased pain, bleeding, temperature, signs/ symptoms of DVT/PE. 4. Medications per home medication was printed, discussed with and given to the patient. 5. Please have patient call to make a telemedicine appointment for 2 weeks after delivery. Diagnosis: Term -delivered Condition: Good - Patient Data Vitals - Most Recent: Last Vital Signs Temp 36.6 C 09/22/19 08:21 Pulse 71 09/22/19 08:21 Resp 16 09/22/19 08:21 BP 115/74 09/22/19 08:21 Pulse Ox 97 09/22/19 08:21 Weight - Most Recent: 81.193 kg Lab Results - Last 24 hrs: Laboratory Results - last 24 hr 09/21/19 09/21/19 Range/Units 11:38 11:38 WBC 11.82 H (3.98-10.04) K/mm3 RBC 3.89 L (3.98-5.22) M/mm3 Hgb 12.0 (11.2-15.7) gm/dl Hct 37.0 (34.1-44.9) % MCV 95.1 H (79.4-94.8) fl MCH 30.8 (25.6-32.2) pg MCHC 32.4 (32.2-35.5) g/dl RDW Std Deviation 47.6 H (36.4-46.3) fL Plt Count 252 (182-369) K/mm3 MPV 11.1 (9.4-12.3) fl Neut % (Auto) 67.6 (34.0-71.1) % Lymph % (Auto) 25.9 (19.3-51.7) % [place] % (Auto) 5.2 (4.7-12.5) % Eos % (Auto) 0.9 (0.7-5.8) Baso % (Auto) 0.2 (0.1-1.2) % Neut # (Auto) 8.00 H (1.56-6.13) K/mm3 Lymph # (Auto) 3.06 (1.18-3.74) K/mm3 [place] # (Auto) 0.61 H (0.24-0.36) K/mm3 Eos # (Auto) 0.11 (0.04-0.36) K/mm3 Baso # (Auto) 0.02 (0.01-0.08) K/mm3 RPR Non-reactive (NONREACTIVE) Med Orders - Current: Current Medications Acetaminophen (Tylenol) 650 mg PO Q4H PRN PRN Reason: mild pain or fever Benzocaine/Menthol (Dermoplast Pain Relief [place]) 0 gm TOP ASDIRECTED PRN PRN Reason: Perineal Comfort Measure Docusate Sodium (Colace) 100 mg PO BID PRN PRN Reason: Constipation Ibuprofen (Motrin) 600 mg PO Q4H PRN PRN Reason: Mild pain or fever Prenat Multivit/Bent/Iron/Folic Ac ( Plus Iron) 1 each PO DAILY AMY Last Admin: 09/22/19 10:10 Dose: 1 each Heide Hernándezel (Tucks) 1 pad TOP ASDIRECTED PRN PRN Reason: Perineal Comfort Measure Discontinued Medications Lactated Ringer's (Ringers, Lactated) 1,000 mls @ 100 mls/hr IV ASDIRECTED AMY Last Infusion: 09/21/19 17:30 Dose: Infused Oxytocin/Lactated Ringer's (Pitocin In Lr 10 Units/1,000 Ml) 10 unit in 1,000 mls @ 500 mls/hr IV .CONTINUOUS AMY Last Infusion: 09/21/19 19:51 Dose: Infused Oxytocin/Lactated Ringer's (Pitocin In Lr 10 Units/1,000 Ml) 10 unit in 1,000 mls @ 12 mls/hr IV TITRATE AMY; Protocol Nalbuphine HCl (Nubain) 10 mg IVPUSH Q2H PRN PRN Reason: Pain Ondansetron HCl (Zofran) 4 mg IVPUSH Q4H PRN PRN Reason: Nausea/Vomiting Sodium Chloride (Saline Flush) 10 ml FLUSH ASDIRECTED PRN PRN Reason: Keep Vein Open
[2019-09-22 16:05] VITALS: BP 103/64; PULSE 72
== END 2019-09-22 17:50 | disposition home or self-care (01) | DRG 560 ==
LOC: JD.OB 10:41 → OBSVTOIN 17:06 → JD.OB 17:06
PROVIDERS: ADMIT Obstetrics & Gynecology; ATTEND Obstetrics & Gynecology
PROC: 10E0XZZ Delivery of Products of Conception, External Approach (ICD-10-PCS; principal; 2019-09-21)
PROC: 10907ZC Drainage of Amniotic Fluid, Therapeutic from Products of Conception, Via Natural or Artificial Opening (ICD-10-PCS; 2019-09-21)
DX: O24.420 Gestational diabetes mellitus in childbirth, diet controlled (principal); Z3A.39 39 weeks gestation of pregnancy; Z37.0 Single live birth; O99.334 Smoking (tobacco) complicating childbirth; F17.200 Nicotine dependence, unspecified, uncomplicated
CPT/HCPCS: 36415; 59025; 59409; 85025; 86592; A9270-GY; J2590; J7120

== ENCOUNTER 2020-09-26 06:52 | Inpatient (IN) | payer BC ==
[2020-09-26] MEDS ORDERED: Lactated Ringers 1,000 ML ONE (07:21)
[2020-09-26] MEDS ORDERED: Ondansetron 4 MG Tab.DIS PO PRN (07:37)
[2020-09-26] MEDS ORDERED: Sodium Chloride 0.9% 10 ML Syringe FLUSH PRN (07:37)
[2020-09-26] MEDS ORDERED: Nalbuphine 10 MG/1 ML Vial IVPUSH PRN (07:37)
[2020-09-26] MEDS ORDERED: Calcium Carbonate 500 MG Tab.Chew PO PRN (07:37)
[2020-09-26] MEDS ORDERED: Lactated Ringers 1,000 ML IV SCH (07:45)
[2020-09-26] MEDS ORDERED: Oxytocin/Lactated Ringers 10 UNIT/1,000 ML BAG IV SCH ×2 (07:45)
--- NOTE | 2020-09-26 08:09 | PCM.LDHP ---
L&D History of Present Illness - General Date of Service: 09/26/20 Admit Problem/Dx: Patient Status Order with Admit Dx/Problem 09/26/20 07:37 Patient Status [ADT] Routine Admission Diagnosis/Problem Admission Diagnosis/Problem 09/26/20 08:00 Cherelle is a 29-year-old 5 para 2-0-2-2 female admitted for induction of labor at 40-3/7 weeks gestational age with an BISI of 09/23/2020. Source of Information: Patient History Limitations: Reports: No Limitations - History of Present Illness Introduction:: Cherelle is a 29-year-old 5 para 2-0-2-2 female admitted for induction of labor at 40-3/7 weeks gestational age with an BISI of 09/23/2020. The process of induction of labor, its risks, benefits and alternatives of care including allowing for natural onset of labor discussed in detail with the patient. She appears understand and wishes to proceed. Last evaluation in clinic her cervix was 4+ centimeters dilated, very soft, 90% effaced, -3 station, anterior position, cephalic presentation. PSYCHOLOGICAL ASSISTANT history: Patient is 5 para 2-0-2-2. She has had 2 vaginal deliveries and 2 miscarriages. Both miscarriages in the first trimester. She had menarche at age 13. Cycles q. months. Last menstrual period was 12/13/2019 onset. is dated by an early ultrasound done at 10-3/7 weeks gestation al age given an BISI of 09/23/2020. course. Patient was initially seen at 10-3/7 weeks gestational age. Because of somewhat uncertainty of her last menstrual period dating was done with first ultrasound. She had regular visits throughout the course. Her weight gain was from 161.2 pounds to 173 pounds for a 12 pound increase. Patient is group B strep negative. She declined genetic testing. Her [place] depression screen score on 04/29/2020 was 2/30. She had a history of gestational diabetes with previous and again at this . She has been controlled with diet. Risk factors for the include history of gestational diabetes, history of smoking 1/2 to 1 pack/day, history of miscarriage x2. Laboratory testing shows blood to be a positive with a negative antibody screen. First hemoglobin is 13.9 g/dL and platelets are 262,000. She is rubella immune. RPR is nonreactive. Urine culture was negative. Hepatitis B surface antigen and HIV assays were both negative. Chlamydia and gonorrhea assays were both negative. Second trimester laboratory test showed a hemoglobin of 11.2 g/dL and patient was started on iron supplementation with ferrous sulfate 3 and 25 mg p.o. daily in addition to her vitamins. Her platelets on the second trimester were 249,000. Diabetic screen test was high at 171 mg/dL. Her 3-hour GTT was elevated with fasting blood sugar of 91, a 1 hour glucose of 219, 2-hour glucose of 170 and a 3-hour glucose of 72. Group B strep screen was negative. RPR done 07/09/2020 was negative. Patient had her flu vaccine on 03/26/2020. Her Tdap was given on 07/17/2020. She is rubella immune. Pneumococcal immunization was given in 2018. Allergies: None Medications: 1. vitamins 1 p.o. daily 2. Ferrous sulfate 3 and 25 mg p.o. daily 3. Vitamin D capsuledose unknown 4. Colace as needed 5. Calcium tabsdose unknown. Past medical history: 1. x2 at 40 to 41-2/7 weeks gestational age 2. Spontaneous miscarriage x2 Past surgical history: Unremarkable Family history: 3 siblings alive and well. A niece with cystic fibrosis and type 1 diabetes. at age 15 months. Mother alive and well. Mother alive and well with exception of hypertension, elevated cholesterol and type 2 diabetes. Maternal grandmother secondary to diabetes and Alzheimer's. Maternal grandfather, paternal grandmother and paternal grandfather but uncertain of cause of . No anesthesia, bleeding, blood clotting, related problems in the . Social history: Patient is . is Lv. They live in [place], [place]. She is a sbef-yf-budu mom. She smokes 1/2 to 1 pack cigarettes per day. No significant alcohol or drug use otherwise. Review of systems: In general patient has no complaints. Baby's activity has decreased over the last 1 to 2 days. Skin: Negative Lungs: No infectious symptoms or shortness of breath Cardiovascular: No chest pain or exercise intolerance Breasts: No lumps, changes in size, pain, dimpling, discharge or axillary or supraclavicular concerns. GI: Negative : related symptoms Musculoskeletal: Negative Neurological: Negative In general the patient is well-developed, well-nourished, pleasant female of stated age in no acute distress. Skin is warm dry without lesions. HEENT, neck and back within normal limits. Lungs are clear with good breath sounds in all lung felipe. Cardiovascular exam shows regular and rhythm without murmurs. Breast exam was not performed as it was done at the first visit and found to be normal. Abdomen is is gravid with last fundal height at 38.5 cm. Baby in vertex presentation.. Genital digital exam shows cervix to be 6 cm, 90% effaced, bulging bag cuevas, - 1 station, anterior, very soft and stretchy. AROM performed with resultant clear amniotic fluid. Extremities and neurological exam are grossly within normal limits. 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 PSYCHOLOGICAL ASSISTANT History: Reports: , Spontaneous Endocrine/Metabolic History: Reports: Diabetes, Gestational Social & Family History - Family History Family Medical History: No Pertinent Family History - Caffeine Use Caffeine Use: Reports: None H&P Review of Systems - Review of Systems: Review Of Systems: See Below L&D Exam - Exam Exam: See Below - Vital Signs Vital Signs: Last Vital Signs Temp 36.4 C 09/26/20 07:11 Pulse 85 09/26/20 07:11 Resp 16 09/26/20 07:11 BP 118/70 09/26/20 07:11 Pulse Ox 99 09/26/20 07:11 Weight: 78.925 kg - Problem List (1) 40 weeks gestation of SNOMED Code(s): 51810220 ICD Code: Z3A.40 - 40 WEEKS GESTATION OF Status: Acute Current Visit: Yes (2) Smoking (tobacco) complicating , third trimester SNOMED Code(s): 258807771, 91524281, 417720132, 234357859, [id number] ICD Code: O99.333 - SMOKING (TOBACCO) COMPLICATING , THIRD TRIMESTER Status: Acute Current Visit: Yes (3) History of multiple miscarriages SNOMED Code(s): 349914211 ICD Code: N96 - RECURRENT LOSS Status: Acute Current Visit: Yes Problem List Initiated/Reviewed/Updated: Yes Orders Last 24hrs: Active Orders 24 hr Category Date Time Status Patient Status [ADT] Routine ADT 09/26/20 07:37 Active Activity as Tolerated [RC] PFP Care 09/26/20 07:37 Active Communication Order [RC] ASDIRECTED Care 09/26/20 07:37 Active Heart Tones [RC] ASDIRECTED Care 09/26/20 07:37 Active Notify Provider [RC] PFP Care 09/26/20 07:37 Active Notify Provider [RC] PRN Care 09/26/20 07:37 Active Peripheral IV Care [RC] . DIRECTED Care 09/26/20 07:37 Active Vital Signs [RC] PER UNIT ROUTINE Care 09/26/20 07:37 Active Regular Diet [DIET] Diet 09/26/20 Breakfast Active CBC WITH AUTO DIFF [HEME] Stat Lab 09/26/20 07:46 Received CORONAVIRUS COVID-19 DONNA [MOLEC] Stat Lab 09/26/20 07:15 Received HEP C VIRUS AB [REF] Stat Lab 09/26/20 07:46 Received RAPID PLASMA REAGIN,RPR [CHEM] Routine Lab 09/26/20 07:46 Received Calcium Carbonate [Tums] Med 09/26/20 07:37 Active 1,000 mg PO Q2H PRN Lactated Ringers [Ringers, Lactated] 1,000 ml Med 09/26/20 07:45 Active IV ASDIRECTED Nalbuphine [Nubain] Med 09/26/20 07:37 Active 10 mg IVPUSH Q2H PRN Ondansetron [Zofran ODT] Med 09/26/20 07:37 Active 4 mg PO Q4H PRN Oxytocin/Lactated Ringers [Pitocin in LR 10 Units/1,000 Med 09/26/20 07:45 Active ML] 10 unit in 1,000 ml IV .CONTINUOUS Oxytocin/Lactated Ringers [Pitocin in LR 10 Units/1,000 Med 09/26/20 07:45 Act bill ML] 10 unit in 1,000 ml IV TITRATE Sodium Chloride 0.9% [Saline Flush] Med 09/26/20 07:37 Active 10 ml FLUSH ASDIRECTED PRN Electronic Heart Tones Ext w TOCO [WOMSER] Oth 09/26/20 07:37 Ordered Routine Electronic Heart Tones Internal [WOMSER] Per Unit Oth 09/26/20 07:37 Ordered Routine Peripheral IV Insertion Adult [OM.PC] Routine Oth 09/26/20 07:37 Ordered Resuscitation Status Routine Resus Stat 09/26/20 07:37 Ordered Medication Orders Calcium Carbonate/Glycine (Calcium Carbonate 500 Mg Tab.Chew) 1,000 mg PO Q2H PRN PRN Reason: Indigestion Lactated Ringer's (Ringers, Lactated) 1,000 mls @ 100 mls/hr IV ASDIRECTED AMY Oxytocin/Lactated Ringer's (Pitocin In Lr 10 Units/1,000 Ml) 10 unit in 1,000 mls @ 12 mls/hr IV TITRATE AMY; Protocol Oxytocin/Lactated Ringer's (Pitocin In Lr 10 Units/1,000 Ml) 10 unit in 1,000 mls @ 500 mls/hr IV .CONTINUOUS AMY Nalbuphine HCl (Nalbuphine 10 Mg/1 Ml Vial) 10 mg IVPUSH Q2H PRN PRN Reason: Pain Ondansetron HCl (Ondansetron 4 Mg Tab.Dis) 4 mg PO Q4H PRN PRN Reason: Nausea/Vomiting Sodium Chloride (Sodium Chloride 0.9% 10 Ml Syringe) 10 ml FLUSH ASDIRECTED PRN PRN Reason: Keep Vein Open Assessment/Plan Comment:: 1.Cherelle is a 29-year-old 5 para 2-0-2-2 female admitted for induction of labor at 40-3/7 weeks gestational age with an BISI of 09/23/2020. 2. History of smoking, miscarriage x2, gestational diabetes as risk factors 3. Patient desires natural labor 4. Patient plans to breast-feed 5. Group B strep negative. Plan: 1. AROM induction of labor. Pitocin augmentation as needed. 2. Admission labs consist of Covid19, RPR, CBC. 3. Anticipate . 4. Support breast-feeding decision.
--- NOTE | 2020-09-26 15:18 | PCM.SN.2 ---
- Free Text/Narrative Note: Delivery Note: Stage I: Cherelle is a 29-year-old 5 para 2-0-2-2 female admitted for induction of labor at 40-3/7 weeks gestational age with an BISI of 09/23/2020. The process of induction of labor, its risks, benefits and alternatives of care including allowing for natural onset of labor discussed in detail with the patient. She appears understand and wishes to proceed. Last evaluation in clinic her cervix was 4+ centimeters dilated, very soft, 90% effaced, -3 station, anterior position, cephalic presentation. Patient underwent initial evaluation while in labor and delivery. She is found to be 6 cm, 90% effaced, -1 station, very soft and stretchy, bulging bag of cuevas, anterior position. AROM was accomplished with resultant clear amniotic fluid. She slowly kicked into labor but over the course of the next 2 hours she was augmented with Pitocin. She more rapidly went on to complete cervical dilation. Stage II: At 1049 hrs. on 09/26/2020 she delivered a viable, diamond, female infant with Apgars of 8 and 9, a weight of 3470 g (7 pounds 10.4 ounces) and a length of 20.0 inches. She delivered in a left occiput anterior position. Baby was placed on mom's abdomen and was dried with warm blanket. Pitocin was increased to 500 cc an hour with the existing solution of 10 mg Pitocin in 1000 cc of solution. This to facilitate increase in uterine tone and decrease likelihood of bleeding. The umbilical cord was allowed to pulsate for 3 minutes and then was clamped x2 and cut by the patient herself. 3 vessels were noted in the umbilical cord. Cord blood was obtained. The baby was taken to the warmer for Yohan and assessment. Stage III: The placenta delivered at 1055 hrs. It delivered in a Jones presentation, was minimally adherent and required expression and vaginal manipulation of the placenta to deliver it completely. Minimal bleeding was encountered. Patient was noted to have no lacerations therefore no suturing was necessary. Estimated blood loss was 500 cc. Condition: Good.
[2020-09-26] MEDS ORDERED: Acetaminophen 325 MG Tab PO PRN (15:39)
[2020-09-26] MEDS ORDERED: Docusate Sodium 100 MG Cap PO PRN (15:39)
[2020-09-26] MEDS ORDERED: Benzocaine/Menthol 20%-0.5% Spray 56 GM Canister TOP PRN (15:39)
[2020-09-26] MEDS ORDERED: Witch Hazel Medicated Pads 40/Jar TOP PRN (15:39)
[2020-09-26] MEDS ORDERED: Ibuprofen 600 MG Tab PO PRN (15:39)
[2020-09-27 08:56] VITALS: BP 116/60; PULSE 77
[2020-09-27] MEDS ORDERED: Prenatal Multivitamin with Calcium/Folic Acid/Iron Tab PO SCH (09:00)
--- NOTE | 2020-09-27 10:00 | PCM.DCSUM1 ---
Discharge Summary - Hospital Course Free Text/Narrative:: Stage I: Cherelle is a 29-year-old 5 para 2-0-2-2 female admitted for induction of labor at 40-3/7 weeks gestational age with an BISI of 09/23/2020. The process of induction of labor, its risks, benefits and alternatives of care including allowing for natural onset of labor discussed in detail with the patient. She appears understand and wishes to proceed. Last evaluation in clinic her cervix was 4+ centimeters dilated, very soft, 90% effaced, -3 station, anterior position, cephalic presentation. Patient underwent initial evaluation while in labor and delivery. She is found to be 6 cm, 90% effaced, -1 station, very soft and stretchy, bulging bag of cuevas, anterior position. AROM was accomplished with resultant clear amniotic fluid. She slowly kicked into labor but over the course of the next 2 hours she was augmented with Pitocin. She more rapidly went on to complete cervical dilation. Stage II: At 1049 hrs. on 09/26/2020 she delivered a viable, diamond, female with Apgars of 8 and 9, a weight of 3470 g (7 pounds 10.4 ounces) and a length of 20.0 inches. She delivered in a left occiput anterior position. Baby was placed on mom's abdomen and was dried with warm blanket. Pitocin was increased to 500 cc an hour with the existing solution of 10 mg Pitocin in 1000 cc of solution. This to facilitate increase in uterine tone and decrease likelihood of bleeding. The umbilical cord was allowed to pulsate for 3 minutes and then was clamped x2 and cut by the patient herself. 3 vessels were noted in the umbilical cord. Cord blood was obtained. The baby was taken to the warmer for Yohan and assessment. Stage III: The placenta delivered at 1055 hrs. It delivered in a Jones presentation, was minimally adherent and required expression and vaginal manipulation of the placenta to deliver it completely. Minimal bleeding was encountered. Patient was noted to have no lacerations therefore no suturing was necessary. Estimated blood loss was 500 cc. patient has done very well. Vital signs are stable. Patient is afebrile. She is ambulating well, nursing without problems, has minimal lochia and is voiding well. She is desiring discharge home. Condition: Good. Diagnosis: Stroke: No - Discharge Data Discharge Date: 09/27/20 Discharge Disposition: Home, Self-Care 01 Condition: Good - Referral to Home Health Primary Care Physician: Shailesh Rudd MD - Discharge Diagnosis/Problem(s) (1) 40 weeks gestation of SNOMED Code(s): 70088709 ICD Code: Z3A.40 - 40 WEEKS GESTATION OF Status: Acute Current Visit: Yes (2) Smoking (tobacco) complicating , third trimester SNOMED Code(s): 743942799, 41566192, 917447973, 043069660, 408342357 ICD Code: O99.333 - SMOKING (TOBACCO) COMPLICATING , THIRD TRIMESTER Status: Acute Current Visit: Yes (3) History of multiple miscarriages SNOMED Code(s): 956579343 ICD Code: N96 - RECURRENT LOSS Status: Acute Current Visit: Yes - Patient Instructions Diet: Regular Diet as Tolerated (Nursing diet with increased calories and calcium as recommended) Activity: As Tolerated (No intercourse or tampons until bleeding resolves) Driving: May Drive Today Showering/Bathing: May Shower (May take a bath) Notify Provider of: Fever, Increased Pain, Swelling and Redness, Nausea and/or Vomiting - Discharge Plan Home Medications: Home Meds Vit 90/Iron Fum/Folic [ Formula] 1 tab PO DAILY 08/21/16 [History] Acetaminophen [Tylenol] 650 mg PO Q4H PRN tablet 09/27/20 [Rx] Ibuprofen [Motrin] 600 mg PO Q4H PRN tablet 09/27/20 [Rx] Patient Handouts: Care After Vaginal Delivery, Steps to Quit Smoking Referrals: Shailesh Rudd MD [Primary Care Provider] - (Return to clinicDr. [facility] weeks.) - Discharge Summary/Plan Comment DC Time >30 min.: No Discharge Summary/Plan Comment: Discharge instructions: 1. Discharge home 2. Diet, activity and follow-up discussed with patient. Recommend nursing diet with increased calories and calcium. 3. Precautions given concern increased pain, bleeding, temperature, signs/symptoms of DVT/PE. 4. Medications per home medication was printed, discussed with and given to the patient. 5. Return to clinic-Dr. Rudd[facility] in 2 weeks. Diagnosis: Term -delivered Condition: Good - Patient Data Vitals - Most Recent: Last Vital Signs Temp 36.3 C 09/27/20 07:55 Pulse 77 09/27/20 07:55 Resp 15 09/27/20 07:55 BP 116/60 09/27/20 07:55 Pulse Ox 96 09/27/20 07:55 Weight - Most Recent: 78.925 kg Lab Results - Last 24 hrs: Laboratory Results - last 24 hr 09/26/20 Range/Units 07:46 RPR Non-reactive (NONREACTIVE) Med Orders - Current: Current Medications Acetaminophen (Acetaminophen 325 Mg Tab) 650 mg PO Q4H PRN PRN Reason: mild pain or fever Benzocaine/Menthol (Benzocaine/Menthol 20%-0.5% [place] 56 Gm Canister) 0 gm TOP ASDIRECTED PRN PRN Reason: Perineal Comfort Measure Docusate Sodium (Docusate Sodium 100 Mg Cap) 100 mg PO BID PRN PRN Reason: Constipation Ibuprofen (Ibuprofen 600 Mg Tab) 600 mg PO Q4H PRN PRN Reason: Mild pain or fever Prenat Multivit/Respiratory Technician/Iron/Folic Ac ( Multivitamin With Calcium/Folic Acid/Iron Tab) 1 each PO DAILY AMY Last Admin: 09/27/20 08:57 Dose: Not Given Documented by: Heide Lynch (Heide Lynch Medicated Pads 40/Jar) 1 pad TOP ASDIRECTED PRN PRN Reason: Perineal Comfort Measure Discontinued Medications Calcium Carbonate/Glycine (Calcium Carbonate 500 Mg Tab.Chew) 1,000 mg PO Q2H PRN PRN Reason: Indigestion Lactated Ringer's (Ringers, Lactated) Confirm Administered Dose 1,000 mls @ as directed .ROUTE .STK-MED ONE Stop: 09/26/20 07:22 Last Admin: 09/26/20 09:13 Dose: Not Given Documented by: Lactated Ringer's (Ringers, Lactated) 1,000 mls @ 100 mls/hr IV ASDIRECTED AMY Last Admin: 09/26/20 07:15 Dose: 100 mls/hr Documented by: Oxytocin/Lactated Ringer's (Pitocin In Lr 10 Units/1,000 Ml) 10 unit in 1,000 mls @ 12 mls/hr IV TITRATE AMY; Protocol Last Titration: 09/26/20 10:49 Dose: 999 munits/min, 5,994 mls/hr Documented by: Oxytocin/Lactated Ringer's (Pitocin In Lr 10 Units/1,000 Ml) 10 unit in 1,000 mls @ 500 mls/hr IV .CONTINUOUS AMY Nalbuphine HCl (Nalbuphine 10 Mg/1 Ml Vial) 10 mg IVPUSH Q2H PRN PRN Reason: Pain Ondansetron HCl (Ondansetron 4 Mg Tab.Dis) 4 mg PO Q4H PRN PRN Reason: Nausea/Vomiting Sodium Chloride (Sodium Chloride 0.9% 10 Ml Syringe) 10 ml FLUSH ASDIRECTED PRN PRN Reason: Keep Vein Open
== END 2020-09-27 11:59 | disposition home or self-care (01) | DRG 560 ==
LOC: JD.OB 06:53 → OBSVTOIN 10:49 → JD.OB 10:50
PROVIDERS: ADMIT Obstetrics & Gynecology; ATTEND Obstetrics & Gynecology
PROC: 10E0XZZ Delivery of Products of Conception, External Approach (ICD-10-PCS; principal; 2020-09-26)
PROC: 10907ZC Drainage of Amniotic Fluid, Therapeutic from Products of Conception, Via Natural or Artificial Opening (ICD-10-PCS; 2020-09-26)
DX: O99.333 Smoking (tobacco) complicating pregnancy, third trimester (principal); Z37.0 Single live birth; Z20.822 Contact with and (suspected) exposure to COVID-19; F17.210 Nicotine dependence, cigarettes, uncomplicated; Z3A.40 40 weeks gestation of pregnancy
CPT/HCPCS: 36415; 59025; 59409; 85025; 86592; 86803; J2590; J7120; U0002

== ENCOUNTER 2024-06-07 07:00 | Inpatient (IN) | payer BC ==
[2024-06-07] MEDS ORDERED: Oxytocin/0.9 % Sodium Chloride 30 UNIT/500 ML BAG IV SCH (07:45)
[2024-06-07] MEDS ORDERED: Ondansetron 4 MG/2 ML SDV IVPUSH PRN (07:45)
[2024-06-07] MEDS ORDERED: Lidocaine 1% 50 ML MDV INJECT PRN (07:45)
[2024-06-07] MEDS ORDERED: Calcium Carbonate 500 MG Tab.Chew PO PRN (07:45)
[2024-06-07] MEDS ORDERED: Nalbuphine 10 MG/1 ML Vial IVPUSH PRN (07:45)
[2024-06-07] MEDS ORDERED: Famotidine 20 MG Tab PO PRN (07:45)
[2024-06-07] MEDS: Lactated Ringers 1,000 ML IV SCH (08:09)
[2024-06-07] MEDS: Oxytocin/0.9 % Sodium Chloride 30 UNIT/500 ML BAG IV SCH (08:10)
[2024-06-07 08:23] LABS: BASOPHILS PERCENT AUTO 0.4 % (0.0-1.0); EOSINOPHILS ABSOLUTE AUTO 0.1 K/mm3 (0.0-0.4); EOSINOPHILS PERCENT AUTO 1.2 % (0.0-6.0); HEMATOCRIT 33.1 % (37.0-47.0); HEMOGLOBIN 10.9 gm/dl (12.0-16.0); IMMATURE GRAN ABSOLUTE AUTO 0.04 K/mm3 (0.00-0.05); IMMATURE GRAN PERCENT AUTO 0.4 % (0.0-0.4); LYMPHOCYTES ABSOLUTE AUTO 2.9 K/mm3 (1.0-4.8); LYMPHOCYTES PERCENT AUTO 26.9 % (24.0-44.0); MEAN CORPUSCULAR HEMOGLOBIN 30.3 pg (28.0-32.0); MEAN CORPUSCULAR HGB CONC 32.9 g/dl (32.0-36.0); MEAN CORPUSCULAR VOLUME 91.9 fl (83.0-99.0); MEAN PLATELET VOLUME 11.5 fl (9.4-12.3); MONOCYTES ABSOLUTE AUTO 0.6 K/mm3 (0.0-0.8); MONOCYTES PERCENT AUTO 5.1 % (0.0-8.0); NEUTROPHILS ABSOLUTE AUTO 7.2 K/mm3 (1.8-7.7); PLATELET COUNT,PLT 257 K/mm3 (150-400); WHITE BLOOD CELL COUNT,WBC 10.92 K/mm3 (3.9-11.3)
[2024-06-07] MEDS ORDERED: Acetaminophen 325 MG Tab PO PRN (16:13)
[2024-06-07] MEDS ORDERED: Benzocaine/Menthol 20%-0.5% Spray 78 GM Cannister TOP PRN (16:13)
[2024-06-07] MEDS ORDERED: Witch Hazel Medicated Pads 40/Jar TOP PRN (16:13)
[2024-06-07] MEDS ORDERED: Docusate Sodium 100 MG Cap PO PRN (16:13)
[2024-06-08] MEDS ORDERED: Ibuprofen 600 MG Tab PO PRN (00:53)
[2024-06-08] MEDS: Ibuprofen 600 MG Tab PO SCH (07:53)
[2024-06-08 12:24] VITALS: BP 119/70; PULSE 90
== END 2024-06-08 14:55 | disposition home or self-care (01) | DRG 560 ==
LOC: JD.OBCHECK 07:00 → JD.OB 07:10 → JD.OBCHECK 07:45 → OBSVTOIN 13:42 → JD.OB 13:43
PROVIDERS: ADMIT Family Medicine; ATTEND Family Medicine
PROC: 10E0XZZ Delivery of Products of Conception, External Approach (ICD-10-PCS; principal; 2024-06-07)
PROC: 10907ZC Drainage of Amniotic Fluid, Therapeutic from Products of Conception, Via Natural or Artificial Opening (ICD-10-PCS; 2024-06-07)
PROC: 3E033VJ Introduction of Other Hormone into Peripheral Vein, Percutaneous Approach (ICD-10-PCS; 2024-06-07)
DX: O24.420 Gestational diabetes mellitus in childbirth, diet controlled (principal); Z37.0 Single live birth; O71.5 Other obstetric injury to pelvic organs; O99.334 Smoking (tobacco) complicating childbirth; F17.210 Nicotine dependence, cigarettes, uncomplicated; Z3A.39 39 weeks gestation of pregnancy
CPT/HCPCS: 36415; 59025; 59409; 82947; 85025; 86592; J7120; J7999